=== PATIENT | female | born 1950 | race Caucasian/White ===

== ENCOUNTER 2018-01-11 19:02 | Emergency (ER) | payer MEDICARE, MEDICAID ==
[~2018-01-11] VITALS: Ht 162.6 cm; Wt 54.0 kg
[2018-01-12 07:45] VITALS: BP 114/69
== END 2018-01-12 12:30 | disposition home or self-care (01) ==
LOC: ER 19:19
DX: M25.522 Pain in left elbow (principal); M25.512 Pain in left shoulder; M25.552 Pain in left hip; F03.90 Unspecified dementia, unspecified severity, without behavioral disturbance, psychotic disturbance, mood disturbance, and anxiety; G20 Parkinson's disease; W18.30XA Fall on same level, unspecified, initial encounter; Y93.89 Activity, other specified; Y99.8 Other external cause status; Y92.89 Other specified places as the place of occurrence of the external cause
CPT/HCPCS: 73030; 73080; 73502; 99284; A4565